=== PATIENT | female | born 1980 | race African-American/Black ===

== ENCOUNTER 2018-06-05 08:13 | Emergency (ER) | payer SELFPAY ==
[~2018-06-05] VITALS: Ht 167.6 cm; Wt 65.4 kg
[2018-06-05] MEDS ORDERED: SODIUM CHLORIDE 0.9% 1,000 ML IV ONE (08:28)
[2018-06-05] MEDS ORDERED: MIDAZOLAM HCL 2 MG/2 ML VIAL IV ONE ×2 (08:30→10:15)
[2018-06-05] MEDS ORDERED: MIDAZOLAM HCL 2 MG/2 ML VIAL ONE (08:37)
[2018-06-05] MEDS ORDERED: LEVETIRACETAM 1000MG/100ML 100 ML IV ONE (08:45)
[2018-06-05 09:11] LABS: HEMATOCRIT. 43.9 % (36.0-48.0); HEMOGLOBIN. 14.6 g/dL (12.0-16.0); MEAN CORPUSCULAR HEMOGLOBIN 31.8 pg (28.0-32.0); MEAN CORPUSCULAR VOLUME 95.2 fL (81.0-99.0); MEAN PLATELET VOLUME 8.2 fl (7.4-10.4); PLATELET 201 x1000/uL (130-400); RED BLOOD CELL COUNT 4.61 mill/uL (4.2-5.4); RED CELL DISTRIBUTION WIDTH 12.9 % (11.6-14.6)
[2018-06-05 09:20] LABS: ETHANOL BLOOD < 10 mg/dL
[2018-06-05] MEDS ORDERED: LORAZEPAM 2MG/ML CPJ ONE (09:23)
[2018-06-05 09:25] LABS: PROTHROMBIN TIME 10.4 sec (9.1-11.1)
[2018-06-05] MEDS ORDERED: LORAZEPAM 2MG/ML CPJ IV ONE ×2 (09:30→11:00)
[2018-06-05 09:36] LABS: CHLORIDE 107 mEq/L (98-107); CREATINE KINASE 162 IU/L (26-192); LDL CHOLESTEROL 62 mg/dL (5-100)
[2018-06-05 09:41] LABS: CARBAMAZEPINE < 0.5 ug/mL (4-12); PHENOBARBITAL < 2.1 ug/mL (15.0-40.0)
[2018-06-05 09:42] LABS: HCG SCREEN NEGATIVE
[2018-06-05] MEDS ORDERED: IOHEXOL-350 100 ML BOTTLE ONE (09:43)
[2018-06-05 09:50] LABS: PLATELET ESTIMATE NORMAL
[2018-06-05] MEDS ORDERED: SUCCINYLCHOLINE CHLORIDE 200MG/10ML IV ONE ×2 (10:00→15:24)
[2018-06-05] MEDS ORDERED: ETOMIDATE 2MG/ML 10ML VIAL IV ONE ×2 (10:00→15:24)
[2018-06-05] MEDS ORDERED: MIDAZOLAM HCL 50 MG in DEXTROSE 5% WATER 40 ML IV ONE (10:00)
[2018-06-05 10:32] LABS: CLARITY URINE CLEAR (CLEAR); COLOR URINE YELLOW (YELLOW); KETONES URINE NEGATIVE (NEGATIVE); LEUKOCYTE ESTERASE URINE NEGATIVE (NEGATIVE); NITRITE URINE NEGATIVE (NEGATIVE); OCCULT BLOOD URINE NEGATIVE (NEGATIVE); PROTEIN URINE NEGATIVE (NEGATIVE); SPECIFIC GRAVITY URINE 1.019 (1.005-1.030); UROBILINOGEN URINE 0.2 E.U./dL (0.2-1.0)
[2018-06-05] MEDS ORDERED: ALTEPLASE IV ONE (10:45)
[2018-06-05] MEDS ORDERED: ALTEPLASE 100MG/VIAL IV ONE (10:45)
[2018-06-05 11:09] LABS: BG BASE EXCESS -1.7 mmol/L (-2.0-2.0); BG CARBOXYHEMOGLOBIN 0.3 % (0.5-1.5); BG DEOXYHEMOGLOBIN 0.4 % (0.0-5.0); BG FRACTION INSPIRED OXYGEN 100; BG HCO3 ACT 21.9 mmol/L (22.0-26.0); BG METHEMOGLOBIN 0.3 % (0.0-1.5); BG OXYGEN SATURATION 99.6 % (92.0-98.5); BG PCO2 33.7 mmHg (35.0-45.0); BG PO2 507.9 mmHg (75.0-100.0); BG SAMPLE SITE RIGHT RADIAL; BG TIDAL VOLUME(mL) 500 mL; BG TOTAL HEMOGLOBIN 14.3 g/dL (12.0-18.0); BG VENT MODE VENT - A/C; BG VENT RATE 24 set
[2018-06-05 11:10] VITALS: BP 115/61
[2018-06-05 11:42] LABS: *AMPHETAMINES SCREEN URINE NEGATIVE (NEGATIVE); *BARBITURATES SCREEN URINE NEGATIVE (NEGATIVE); *COCAINE SCREEN URINE NEGATIVE (NEGATIVE)
[2018-06-05 11:43] LABS: METHADONE URINE SCREEN NEGATIVE (NEGATIVE); OPIATES URINE SCREEN NEGATIVE (NEGATIVE); PHENCYCLIDINE URINE SCREEN NEGATIVE (NEGATIVE)
[2018-06-05 11:44] LABS: CANNABINOID URINE SCREEN NEGATIVE (NEGATIVE)
[2018-06-05 12:15] LABS: *BENZODIAZEPINES SCREEN URINE PRESUMTIVE POSITIVE (NEGATIVE)
== END 2018-06-05 11:15 | disposition short-term general hospital (02) ==
LOC: ER 08:13 → EDBEDREQSVC 09:18 → EDBEDREQ 09:20 → CANBEDREQ 11:01 → ER 11:15
DX: I63.9 Cerebral infarction, unspecified (principal)
CPT/HCPCS: 31500; 36415; 36600; 37195; 51702; 70450; 70496; 70498; 71045; 72125; 80053; 80156; 80165; 80184; 80185; 80305; 81003; 81025; 82375; 82550; 82805; 82962; 83721; 83735; 83880; 84484; 84703; 85025; 85610; 85730; 86850; 86900; 86901; 93005; 96365; 96375; 99291; G0482; J0330; J1953; J2060; J2250; J2997; J3490; J7030; J7060; Q9967; Z7610; A4315